=== PATIENT | female | born 1945 | race Caucasian/White ===

== ENCOUNTER 2017-10-15 13:03 | Day surgery (SDC) | payer MEDICARE, SELFPAY ==
[~2017-10-15] VITALS: Ht 157.5 cm; Wt 100.3 kg
[~2017-10-15 13:03] MED LIST: ALBU3IS INH; ALBU90OI INH; ALLO100 PO; AMLO5; AMLO5 PO; BECL80OI INH; BISA10S PR; CALC.25; CELE200; CHOL10002; DOCU100 PO; ESTR.625; FAMO20 PO; FENT25TP TOP; FERR325; FERR325 PO; FURO40; FURO40 PO; GLYB5 PO; Glyburide5 MG PO; INSUASPI SC; IRBE150; IRON160 M1 PO; Klor-Con 1010 MEQ PO; LANS30EC; LANS30EC PO; MELA3 PO; METF500; METO50 PO; MOM PO; OMEP10ER PO; OMEP20ER PO; OMEPRAZOLE MAGN20 MG PO; OXYACE5T PO; PIOG15; PIOG15 PO; PROACE100 PO; RANI150 PO; SENN187 PO; SODBIC650 PO; SODPHOSO PR; SUCR1 PO; TELM80 PO; TELM80/12.5 PO; TRAM50 PO; ZYRTEC10 M1 PO
[2017-10-15] MEDS ORDERED: ONE DAILY FOR1 EACH PO (14:07)
== END 2017-10-15 15:28 | disposition home or self-care (01) ==
LOC: ORSCSDS 13:03
PROVIDERS: Internal Medicine Gastroenterology
PROC: 0DBE8ZX Excision of Large Intestine, Via Natural or Artificial Opening Endoscopic, Diagnostic (ICD-10-PCS; principal; 2017-10-15 14:15)
DX: R19.5 Other fecal abnormalities (principal); R19.7 Diarrhea, unspecified; K52.831 Collagenous colitis; K57.30 Diverticulosis of large intestine without perforation or abscess without bleeding; K64.8 Other hemorrhoids; Z86.010 Personal history of colon polyps; I10 Essential (primary) hypertension; I50.9 Heart failure, unspecified; E11.9 Type 2 diabetes mellitus without complications; G47.33 Obstructive sleep apnea (adult) (pediatric); E66.01 Morbid (severe) obesity due to excess calories; Z68.41 Body mass index [BMI] 40.0-44.9, adult; Z79.899 Other long term (current) drug therapy
CPT/HCPCS: 82947; 88305; 88313; J7120

== ENCOUNTER → 2021-12-03 | Outpatient (CLI) | payer MEDICARE ==
[~2021-12-03] MED LIST changes: +ONE DAILY FOR1 EACH PO
== END | disposition home or self-care (01) ==
LOC: LAB SHORT 11:34
DX: L30.8 Other specified dermatitis (principal)
CPT/HCPCS: 88304; 88305

== ENCOUNTER 2022-01-06 12:25 | Inpatient (IN) | payer MEDICARE ==
[~2022-01-06] VITALS: Ht 157.5 cm; Wt 84.0 kg
[~2022-01-06 12:25] MED LIST changes: -AMARYL4 M1 PO; -CALC.25 PO; -CEFD300 PO; -COREG25 MG PO; -ENTRESTO 49 MG1 EAC2 PO; -JARDIANCE10 MG PO
[2022-01-06] MEDS ORDERED: ALLO100 PO (13:59)
[2022-01-06] MEDS ORDERED: AMARYL4 M1 PO (13:59)
[2022-01-06] MEDS ORDERED: CALC.25 PO (14:00)
[2022-01-06] MEDS ORDERED: FAMO20 PO (14:01)
[2022-01-06] MEDS ORDERED: JARDIANCE10 MG PO (14:31)
[2022-01-06] MEDS ORDERED: COREG25 MG PO (16:47)
[2022-01-06] MEDS ORDERED: ENTRESTO 49 MG1 EAC2 PO (16:49)
--- NOTE | 2022-01-06 18:51 | NUR ---
PT ADMITTED TO ROOM 1820. PT TRANSFERRED TO BED STAND PIVOT WITH CANE. A/O X3 PLEASTNT COOP. DENIES PAIN. H/R IRREG, IRREG. NO MURMER NOTED. PER TELE. NSR AT 77 WITH OCC PVC'S. DENIES PACER. LUNGS CLEAR UPPER. CRACKLES MID AND LOWER LOBES. ON R/A. RESP EASY, UNLABORED. BT X4 PT STATES LAST BM TODAY. LOOSE TO DIARRHEA. VOIDS 1 ASST TO BSC. BED IN LOW POSITION, CALL LITE IN REACH, CALLS APROP. NEW IV PLACED.
[2022-01-07 04:55] LABS: BASOPHILS ABSOLUTE AUTO 0.04 K/mm3 (0.00-0.23); BASOPHILS PERCENT AUTO 0 % (0-2); EOSINOPHILS ABSOLUTE AUTO 0.28 K/mm3 (0.00-0.68); EOSINOPHILS PERCENT AUTO 2 % (0-6); Hematocrit 32.6 % (33.0-51.0); Hemoglobin 10.8 g/dL (11.5-16.0); IMMATURE GRAN ABSOLUTE AUTO 0.09 K/mm3 (0.00-0.10); IMMATURE GRAN PERCENT AUTO 1 % (0-1); LYMPHOCYTES ABSOLUTE AUTO 1.13 K/mm3 (0.84-5.20); LYMPHOCYTES PERCENT AUTO 9 % (21-46); MONOCYTES ABSOLUTE AUTO 1.17 K/mm3 (0.16-1.47); MONOCYTES PERCENT AUTO 9 % (4-13); Mean Corpuscular HGB 27.6 pg (26.0-34.0); Mean Corpuscular HGB Conc 33.1 g/dL (31.5-36.5); Mean Corpuscular Volume 83 fL (80-100); NEUTROPHILS ABSOLUTE AUTO 9.88 K/mm3 (1.96-9.15); NEUTROPHILS PERCENT AUTO 79 % (41-73); Platelet Count 183 K/mm3 (150-400); RDW Coefficient Variation 15.5 % (11.7-14.2); Red Blood Cell Count 3.91 M/mm3 (3.80-5.20); White Blood Cell Count 12.59 K/mm3 (4.00-11.30)
[2022-01-07 04:57] LABS: Mean Platelet Volume 13.6 fL (9.1-12.4)
[2022-01-07 05:14] LABS: Albumin/Globulin Ratio 0.5 (0.8-1.8); Bilirubin, Total 0.3 mg/dL (0.1-1.0); Bun/Creatinine Ratio 24.9 (12.0-20.0); Calcium, Blood 7.3 mg/dL (8.5-10.1); Creatinine, Blood 1.89 mg/dL (0.40-1.00); Globulin, Blood 4.1 g/dL (2.2-4.0); Potassium, Blood 3.4 mmol/L (3.5-5.5); Total Protein, Blood 6.1 g/dL (6.4-8.2)
--- NOTE | 2022-01-07 06:25 | NUR ---
PM SHIFT SUMMARY PATIENT ARRIVED ON UNIT AT THE DAILY END OF DAY SHIFT. SHE IS A&Ox4 AND A 1 PERSON ASSIST TO THE RESTROOM. SHE WALKS VERY SLOW AND IS SLIGHTLY UNSTEADY DUE TO GENERALIZED WEAKNESS. SHE HAS AN EXTENSIVE MEDICAL HISTORY. HER GLUCOSE CHECK FOR THE EVENING WAS A 112. I DID NOT RECEIVE ANY CALLS FROM TELEMETRY ABOUT PATIENT'S HEART RATE BEING IRREGULAR. CRACKLES ARE HEARD IN BLL. SHE HAD HAD 1 WATERY YELLOW/GREEN BOWEL MOVEMENT, WHICH IS CONSISTENT WITH REPORT I WAS GIVEN. SHE HAS A VERY DECREASED APPETITE. SHE WEARS A CPAP AT NIGHT. SHE HAD NO OTHER COMPLAINTS DURING THE SHIFT.
--- NOTE | 2022-01-07 10:51 | NUR ---
Echocardiogram completed.
--- NOTE | 2022-01-07 17:42 | NUR ---
PT IS A/OX4, PLEASANT AND COOPERATIVE. THE PT IS UP WITH MINIMAL ASSIST TO THE BATHROOM AND TO THE CHAIR. THE PT HAS BEEN UP FOR MEALS. ORDERED ECHO WAS DONE TODAY THE PT TOLERATED IT WELL. THE PT WAS NAUSEATED AFTER LUNCH ZOFRAN WAS GIVEN WITH GOOD RESULTS. THE PT THIS AFTERNOON HAD A 10 BEAT RUN OF V-TACH. DR. BECKWITH WAS CALLED AND NOTIFIED, THE PT HAD NO CHEST PAIN/PRESSURE, OR SOB DURING THE EVENT. PT HAS FAMILY VISITING AT THE BEDSIDE AT THIS TIME AND APPEARS TO BE BREATHING EASILY ON RA CALL LIGHT IN REACH, WILL CONTINUE TO MONITOR AND ASSESS FOR CHANGES
--- NOTE | 2022-01-07 17:54 | NUR ---
STUDENT ASSESSMENT THIS RN WAS PRESENT DURING THE AM ASSESSMENT AND AGREE WITH THE STUDENTS AM ASSESSMENT AND DOCUMENTATION T/O THE DAY
--- NOTE | 2022-01-08 04:48 | NUR ---
SHIFT SUMMARY 76 YR F ADMITTED ON 01/06/22 FOR SOB, PNEUMONIA, AND CHF. FULL CODE. NO ACUTE CHANGES THIS SHIFT. PT HAD 1 LOOSE STOOL AND STOOL SOFTENER WAS HELF FROM EVENING MEDS. PT IS A & O AND IS ABLE TO AMBULATE TO THE BATHROOM W/ ASSISTANCE. SHE IS CURRENTLY ON A 2000 FLUID RESTRICTION THAT WILL RUN FROM 6 AM TO 6 PM. SHE HAS ONLY HAS APPROX 250 ML THIS SHIFT. SHE HAD HER CPAP BROUGHT FROM HOME AND RT SET IT UP FOR HER. SHE STATES SHE IS VERY COMFORTABLE W/ IT SHE USES IT EVERY NIGHT AT HOME. PT DID HAVE A COUGHING SPELL AT APPROX O1OO THAT CAUSED HER TO SIT UP ON THE EDGE OF THE BED FOR A FEW MINUTES TO CATCH HER BREATH. THE COUGH WAS DRY AND NON PRODUCTIVE. AFTER A FEW MINUTES AND A COUPLE OF SIPS OF WATER SHE WAS FINE AND LAID BACK DOWN W/ NO FURTHER ISSUES.
[2022-01-08 04:53] LABS: BASOPHILS ABSOLUTE AUTO 0.04 K/mm3 (0.00-0.23); BASOPHILS PERCENT AUTO 0 % (0-2); EOSINOPHILS ABSOLUTE AUTO 0.37 K/mm3 (0.00-0.68); EOSINOPHILS PERCENT AUTO 4 % (0-6); Hematocrit 33.4 % (33.0-51.0); Mean Corpuscular HGB 27.2 pg (26.0-34.0); Mean Corpuscular HGB Conc 32.9 g/dL (31.5-36.5); Mean Corpuscular Volume 83 fL (80-100); Platelet Count 221 K/mm3 (150-400); RDW Coefficient Variation 15.5 % (11.7-14.2); RDW Standard Deviation 47.6 fL (35.1-46.3); Red Blood Cell Count 4.04 M/mm3 (3.80-5.20); White Blood Cell Count 10.48 K/mm3 (4.00-11.30)
[2022-01-08 05:08] LABS: IMMATURE GRAN ABSOLUTE AUTO 0.12 K/mm3 (0.00-0.10); IMMATURE GRAN PERCENT AUTO 1 % (0-1); LYMPHOCYTES ABSOLUTE AUTO 1.17 K/mm3 (0.84-5.20); LYMPHOCYTES PERCENT AUTO 11 % (21-46); MONOCYTES ABSOLUTE AUTO 0.76 K/mm3 (0.16-1.47); MONOCYTES PERCENT AUTO 7 % (4-13); NEUTROPHILS ABSOLUTE AUTO 8.02 K/mm3 (1.96-9.15); NEUTROPHILS PERCENT AUTO 77 % (41-73)
[2022-01-08 05:09] LABS: Bun/Creatinine Ratio 22.1 (12.0-20.0); Calcium, Blood 7.6 mg/dL (8.5-10.1); Creatinine, Blood 2.04 mg/dL (0.40-1.00); Potassium, Blood 3.3 mmol/L (3.5-5.5)
--- NOTE | 2022-01-08 18:38 | NUR ---
PT IS A/OX4, PLEASANT AND COOPERATIVE, PT IS UP WITH MINIMAL ASSIST TO THE CHAIR AND THE BATHROOM. THE PT HAS A DRY NON PRODUCTIVE, FLUTTER VALVE THERAAPY WAS STARTED. THE PT HAS EPISODES OF UNCONTROLED COUGHING CAUSING A RAMIREZ TODAY, AND MILD NAUSEA. PT OTHERWISE APPEARS TO BE BREATHING EASILY ON RA. FAMILY IS AT THE BEDSIDE AT THIS TIME. CALL LIGHT IN REACH. WILL CONTINUE TO MONITOR AND ASSESS FOR CHANGES
[2022-01-08 19:55] LABS: Vancomycin, Random 19.6 ug/mL
[2022-01-09 05:12] LABS: BASOPHILS ABSOLUTE AUTO 0.03 K/mm3 (0.00-0.23); BASOPHILS PERCENT AUTO 0 % (0-2); EOSINOPHILS ABSOLUTE AUTO 0.34 K/mm3 (0.00-0.68); EOSINOPHILS PERCENT AUTO 5 % (0-6); Hematocrit 31.8 % (33.0-51.0); Hemoglobin 10.2 g/dL (11.5-16.0); Mean Corpuscular HGB 26.8 pg (26.0-34.0); Mean Corpuscular HGB Conc 32.1 g/dL (31.5-36.5); Mean Corpuscular Volume 84 fL (80-100); Platelet Count 207 K/mm3 (150-400); RDW Coefficient Variation 15.9 % (11.7-14.2); RDW Standard Deviation 49.1 fL (35.1-46.3); White Blood Cell Count 7.09 K/mm3 (4.00-11.30)
[2022-01-09 05:27] LABS: IMMATURE GRAN ABSOLUTE AUTO 0.09 K/mm3 (0.00-0.10); IMMATURE GRAN PERCENT AUTO 1 % (0-1); LYMPHOCYTES ABSOLUTE AUTO 1.23 K/mm3 (0.84-5.20); LYMPHOCYTES PERCENT AUTO 17 % (21-46); MONOCYTES ABSOLUTE AUTO 0.68 K/mm3 (0.16-1.47); MONOCYTES PERCENT AUTO 10 % (4-13); Mean Platelet Volume 13.4 fL (9.1-12.4); NEUTROPHILS ABSOLUTE AUTO 4.72 K/mm3 (1.96-9.15); NEUTROPHILS PERCENT AUTO 67 % (41-73)
[2022-01-09 05:43] LABS: Bun/Creatinine Ratio 21.4 (12.0-20.0); Calcium, Blood 7.9 mg/dL (8.5-10.1); Creatinine, Blood 1.92 mg/dL (0.40-1.00); Potassium, Blood 3.7 mmol/L (3.5-5.5)
--- NOTE | 2022-01-09 06:02 | NUR ---
SHIFT SUMMARY: PT IS ALERT AND ORIENTED. PT IS CALM AND COOPERATIVE WITH CARE. PT CALLS APPROPRIATELY. PT IS A ONE ASSIST TO THE BATHROOM. FAMILY IN VISITING AT THE START OF SHIFT. PT DENIES PAIN, NAUSEA, VOMITING, AND SOB. PT SLEPT MUCH OF THE NIGHT. NO ACUTE CHANGES OR COMPLICATIONS THIS SHIFT. WILL CONTINUE TO MONITOR.
[2022-01-09 09:38] LABS: Vancomycin, Random 17.6 ug/mL
[2022-01-09] MEDS ORDERED: CEFD300 PO (12:51)
--- NOTE | 2022-01-09 15:23 | NUR ---
PT DISCHARGED THE PT VERBALIZED UNDERSTANDING OF THE DC INSTRUCTIONS, PTS PRESCRIPTIONS FAXED TO [facility] REQUESTED. FOLLOW UP APPOINTMENT WAS ESTABLISHED WITH HER PCP PRIOR TO DC. THE PT WAS TRANSFERED VIA WHEELCHAIR ACCOMPANIED BY THE STUDENT NURSE AND HER FAMILY TO THE FRONT ENTRANCE
== END 2022-01-09 13:45 | disposition home health service (06) | DRG 194 ==
LOC: ER 12:25 → MEDS 15:42
PROVIDERS: Family Medicine; ADMIT Family Medicine
DX: J18.9 Pneumonia, unspecified organism (principal); I50.22 Chronic systolic (congestive) heart failure; I13.0 Hypertensive heart and chronic kidney disease with heart failure and stage 1 through stage 4 chronic kidney disease, or unspecified chronic kidney disease; N18.4 Chronic kidney disease, stage 4 (severe); N25.81 Secondary hyperparathyroidism of renal origin; J44.0 Chronic obstructive pulmonary disease with (acute) lower respiratory infection; N17.9 Acute kidney failure, unspecified; G89.4 Chronic pain syndrome; E87.6 Hypokalemia; K21.9 Gastro-esophageal reflux disease without esophagitis; E78.5 Hyperlipidemia, unspecified; M19.90 Unspecified osteoarthritis, unspecified site; Z96.652 Presence of left artificial knee joint; E66.01 Morbid (severe) obesity due to excess calories; M81.0 Age-related osteoporosis without current pathological fracture; G47.33 Obstructive sleep apnea (adult) (pediatric); E55.9 Vitamin D deficiency, unspecified; E11.22 Type 2 diabetes mellitus with diabetic chronic kidney disease; M10.9 Gout, unspecified; Z68.32 Body mass index [BMI] 32.0-32.9, adult; Z88.2 Allergy status to sulfonamides; Z79.899 Other long term (current) drug therapy; Z90.710 Acquired absence of both cervix and uterus; Z90.89 Acquired absence of other organs; Z88.8 Allergy status to other drugs, medicaments and biological substances; Z98.42 Cataract extraction status, left eye; Z88.0 Allergy status to penicillin; Z98.890 Other specified postprocedural states; Z98.41 Cataract extraction status, right eye; Z91.048 Other nonmedicinal substance allergy status; Z90.49 Acquired absence of other specified parts of digestive tract; Z88.6 Allergy status to analgesic agent; Z88.5 Allergy status to narcotic agent; Z91.040 Latex allergy status; Z99.81 Dependence on supplemental oxygen
CPT/HCPCS: 36415; 80048; 80053; 80202; 82947; 84145; 85025; 87040; 87449; 93306; 94660; 94760; 94762; 96365; 96375; 97116; 97161; 97165; 97530; 97535; 99284-25; A9270; J0456; J0696; J1644; J2405; J3370; J3480; J7030; J7050

== ENCOUNTER → 2022-01-06 | Outpatient (CLI) | payer MEDICARE ==
[~2022-01-06] MED LIST changes: +AMARYL4 M1 PO; +CALC.25 PO; +CEFD300 PO; +COREG25 MG PO; +ENTRESTO 49 MG1 EAC2 PO; -FURO40; +JARDIANCE10 MG PO
[2022-01-06 11:26] LABS: BASOPHILS ABSOLUTE AUTO 0.05 K/mm3 (0.00-0.23); BASOPHILS PERCENT AUTO 0 % (0-2); EOSINOPHILS ABSOLUTE AUTO 0.12 K/mm3 (0.00-0.68); EOSINOPHILS PERCENT AUTO 1 % (0-6); Hematocrit 36.7 % (33.0-51.0); Hemoglobin 12.1 g/dL (11.5-16.0); IMMATURE GRAN ABSOLUTE AUTO 0.14 K/mm3 (0.00-0.10); IMMATURE GRAN PERCENT AUTO 1 % (0-1); LYMPHOCYTES ABSOLUTE AUTO 0.74 K/mm3 (0.84-5.20); LYMPHOCYTES PERCENT AUTO 4 % (21-46); MONOCYTES ABSOLUTE AUTO 1.06 K/mm3 (0.16-1.47); MONOCYTES PERCENT AUTO 6 % (4-13); Mean Corpuscular HGB 27.8 pg (26.0-34.0); Mean Corpuscular Volume 84 fL (80-100); NEUTROPHILS ABSOLUTE AUTO 15.25 K/mm3 (1.96-9.15); NEUTROPHILS PERCENT AUTO 88 % (41-73); RDW Coefficient Variation 15.1 % (11.7-14.2); RDW Standard Deviation 45.8 fL (35.1-46.3); Red Blood Cell Count 4.35 M/mm3 (3.80-5.20); White Blood Cell Count 17.36 K/mm3 (4.00-11.30)
[2022-01-06 11:35] LABS: Albumin, Blood 2.8 g/dL (3.4-5.0); Albumin/Globulin Ratio 0.6 (0.8-1.8); Bilirubin, Total 0.7 mg/dL (0.1-1.0); Bun/Creatinine Ratio 21.2 (12.0-20.0); Calcium, Blood 7.8 mg/dL (8.5-10.1); Creatinine, Blood 2.45 mg/dL (0.40-1.00); Globulin, Blood 4.7 g/dL (2.2-4.0); Total Protein, Blood 7.5 g/dL (6.4-8.2)
[2022-01-06 13:28] LABS: BAND PERCENT MAN 5 % (0-8); BASOPHILS ABSOLUTE MAN 0.17 K/mm3 (0.00-0.23); BASOPHILS PERCENT MAN 1 % (0-2); EOSINOPHILS ABSOLUTE MAN 0.86 K/mm3 (0.00-0.68); EOSINOPHILS PERCENT MAN 5 % (0-6); LYMPHOCYTES PERCENT MAN 11 % (21-46); MONOCYTES ABSOLUTE MAN 1.21 K/mm3 (0.16-1.47); MONOCYTES PERCENT MAN 7 % (4-13); NEUTROPHILS ABSOLUTE MAN 13.19 K/mm3 (1.96-9.15); SEG NEUTROPHILS PERCENT MAN 71 % (41-73); TOTAL CELLS COUNTED 100
== END | disposition home or self-care (01) ==
LOC: LAB 11:19 → LAB SHORT 11:19
PROVIDERS: General Practice
DX: J18.9 Pneumonia, unspecified organism (principal)
CPT/HCPCS: 80053; 83880; 85025

== ENCOUNTER → 2022-12-20 | Outpatient (CLI) | payer MEDICARE ==
[~2022-12-20] MED LIST changes: +AMARYL4 M1 PO; +CALC.25 PO; +CEFD300 PO; +COREG25 MG PO; +ENTRESTO 49 MG1 EAC2 PO; +JARDIANCE10 MG PO
[2022-12-20 19:57] LABS: Creatinine, Urine Random 55.2 mg/dL (27.00-270.00); Protein, Urine Random 28.3 mg/dL (0.0-11.9); Protein/Creat Ratio, Ur Random 0.5
== END | disposition home or self-care (01) ==
LOC: LAB 12:24 → LAB SHORT 12:24
PROVIDERS: Internal Medicine Nephrology
DX: N18.4 Chronic kidney disease, stage 4 (severe) (principal)
CPT/HCPCS: 82570; 84156

== ENCOUNTER → 2023-06-10 | Outpatient (CLI) | payer MEDICARE ==
[2023-06-10 13:12] LABS: BASOPHILS ABSOLUTE AUTO 0.05 K/mm3 (0.00-0.23); BASOPHILS PERCENT AUTO 1 % (0-2); EOSINOPHILS ABSOLUTE AUTO 0.36 K/mm3 (0.00-0.68); EOSINOPHILS PERCENT AUTO 5 % (0-6); Hematocrit 36.2 % (33.0-51.0); Hemoglobin 11.7 g/dL (11.5-16.0); IMMATURE GRAN ABSOLUTE AUTO 0.02 K/mm3 (0.00-0.10); IMMATURE GRAN PERCENT AUTO 0 % (0-1); LYMPHOCYTES ABSOLUTE AUTO 1.51 K/mm3 (0.84-5.20); LYMPHOCYTES PERCENT AUTO 20 % (21-46); MONOCYTES ABSOLUTE AUTO 0.69 K/mm3 (0.16-1.47); MONOCYTES PERCENT AUTO 9 % (4-13); Mean Corpuscular HGB Conc 32.3 g/dL (31.5-36.5); Mean Corpuscular Volume 90 fL (80-100); NEUTROPHILS ABSOLUTE AUTO 4.91 K/mm3 (1.96-9.15); NEUTROPHILS PERCENT AUTO 65 % (41-73); Platelet Count 149 K/mm3 (150-400); RDW Coefficient Variation 13.6 % (11.7-14.2); RDW Standard Deviation 44.6 fL (35.1-46.3); Red Blood Cell Count 4.04 M/mm3 (3.80-5.20); White Blood Cell Count 7.54 K/mm3 (4.00-11.30)
[2023-06-10 13:26] LABS: Bun/Creatinine Ratio 27.3 (12.0-20.0); Calcium, Blood 10.7 mg/dL (8.5-10.1); Creatinine, Blood 2.05 mg/dL (0.40-1.00); Potassium, Blood 4.4 mmol/L (3.5-5.5)
== END | disposition home or self-care (01) ==
LOC: LAB SHORT 11:52 → LAB 11:52
PROVIDERS: Registered Nurse Oncology
DX: M81.0 Age-related osteoporosis without current pathological fracture (principal); M85.88 Other specified disorders of bone density and structure, other site
CPT/HCPCS: 80048; 85025